=== PATIENT | male | born 1950 | race Caucasian/White ===

== ENCOUNTER 2022-03-30 09:56 | Outpatient (CLI) | payer MEDICARE | END 2022-03-30 09:57 | disposition home or self-care (01) | LOC: CSHMRI 09:56 | PROVIDERS: ATTEND Nurse Practitioner Family | DX: M48.062 Spinal stenosis, lumbar region with neurogenic claudication (principal); M47.816 Spondylosis without myelopathy or radiculopathy, lumbar region | CPT/HCPCS: 72110; 72148 ==